=== PATIENT | male | born 1985 | race Caucasian/White ===

== ENCOUNTER 2020-05-10 07:40 | Outpatient (CLI) | payer MEDICAID ==
[2020-05-10] VITALS (17 sets, daily range): BP systolic 116–184; BP diastolic 56–107
== END 2020-05-10 23:59 | disposition home or self-care (01) ==
LOC: CARD DIAG 07:40
PROVIDERS: ATTEND Internal Medicine Cardiovascular Disease
DX: R55 Syncope and collapse (principal)
CPT/HCPCS: 93660